=== PATIENT | female | born 1950 | race Caucasian/White ===

== ENCOUNTER → 2017-09-17 | Outpatient (CLI) | payer OTHER ==
[~2017-09-17] MED LIST: ESCITALOPRAM OXA5 MG PO; FISH OIL 1,0001 EA11 PO; FUROSEMIDE20 MG PO; MULTIVITAMIN1 EAC2 PO; OMEPRAZOLE40 M1 PO; POTASSIUM CHLO20 ME2 PO; SIMVASTATIN10 MG PO; TYLENOL EXTRA500 MG PO; VALSARTAN320 MG PO; VITAMIN C500 M1 PO
== END | disposition home or self-care (01) ==
DX: R26.2 Difficulty in walking, not elsewhere classified (principal); M25.562 Pain in left knee; M25.662 Stiffness of left knee, not elsewhere classified; M62.81 Muscle weakness (generalized); M17.12 Unilateral primary osteoarthritis, left knee
CPT/HCPCS: 97161 GP; 97165 GO; 97530 GP; 97537 GO; G8978 GP; G8979 GP; G8980 GP; G8987 GO; G8988 GO; G8989 GO

== ENCOUNTER 2017-10-20 22:08 | Inpatient (IN) | payer OTHER ==
[~2017-10-20] VITALS: Ht 177.8 cm; Wt 107.1 kg
[~2017-10-20 22:08] MED LIST changes: +24 HOUR ALLER15.8 ML BOTH NARES; +CHILD ASPIRIN81 M1 PO; +COZAAR100 MG PO; -ESCITALOPRAM OXA5 MG PO; +KLOR-CON M2020 MEQ PO; +LEXAPRO5 MG PO; +NORVASC5 MG PO; -POTASSIUM CHLO20 ME2 PO; -SIMVASTATIN10 MG PO; +TYLENOL ARTHRI650 MG PO; -TYLENOL EXTRA500 MG PO; +ZOCOR10 MG PO
[2017-10-21 09:27] VITALS: BP 167/84
[2017-10-21 14:01] LABS: HEMATOCRIT 37.4 % (36.0-46.0); HEMOGLOBIN 12.4 G/DL (11.9-15.5); MCHC 33.2 G/DL (30.0-36.0); MCV 93.5 FL (83-99); PLATELET COUNT 240 K/uL (156-360); RBC DIS.WIDTH-CV 12.3 % (11.8-14.6); RBC DIS.WIDTH-SD 42.5 % (39-53); WHITE BLOOD COUNT 5.8 K/uL (4.1-10.2)
[2017-10-21 16:33] VITALS: BP 163/86
[2017-10-21 20:03] VITALS: BP 161/85
[2017-10-22 00:09] VITALS: BP 160/84
[2017-10-22 03:57] VITALS: BP 176/83
[2017-10-22 06:26] LABS: HEMATOCRIT 34.2 % (36.0-46.0); HEMOGLOBIN 11.4 G/DL (11.9-15.5); MCV 92.7 FL (83-99)
[2017-10-22 06:33] LABS: CHLORIDE 100 MEQ/L (99-109); CREATININE 0.6 MG/DL (0.6-1.3); GFR ESTIMATE (CALCULATED) > 59 mL/min/; GLUCOSE 124 mg/dL (70-99); POTASSIUM 3.5 MEQ/L (3.7-5.4); SODIUM 133 MEQ/L (136-147); UREA NITROGEN (BUN) 15 mg/dL (9-23)
[2017-10-22 07:30] VITALS: BP 166/77
[2017-10-22 15:14] VITALS: BP 158/79
[2017-10-22 23:16] VITALS: BP 160/73
[2017-10-23 05:51] LABS: HEMATOCRIT 29.8 % (36.0-46.0); HEMOGLOBIN 10.1 G/DL (11.9-15.5); MCV 91.4 FL (83-99)
[2017-10-23 08:19] VITALS: BP 127/63
[2017-10-23] MEDS ORDERED: CELECOXIB200 MG PO (09:17)
[2017-10-23] MEDS ORDERED: LOVENOX40 MG/0.4 SC (09:17)
[2017-10-23] MEDS ORDERED: ENDOCET 5-3251 EACH PO (09:17)
[2017-10-23] MEDS ORDERED: DOCUSATE SODIU100 MG PO (09:17)
== END 2017-10-23 14:17 | disposition home or self-care (01) | DRG 470 ==
LOC: ENRESERV 22:08 → 2SOUTH 10-21 08:53 → ENRESERV 10-21 15:35 → 2SOUTH 10-21 15:49 → 3EAST 10-21 15:53
PROVIDERS: Orthopaedic Surgery
PROC: 0SRD0J9 Replacement of Left Knee Joint with Synthetic Substitute, Cemented, Open Approach (ICD-10-PCS; principal; 2017-10-21)
DX: M17.12 Unilateral primary osteoarthritis, left knee (principal); I10 Essential (primary) hypertension; G47.33 Obstructive sleep apnea (adult) (pediatric); E78.5 Hyperlipidemia, unspecified; K21.9 Gastro-esophageal reflux disease without esophagitis; J45.909 Unspecified asthma, uncomplicated; F32.9 Major depressive disorder, single episode, unspecified; E66.9 Obesity, unspecified; D11.9 Benign neoplasm of major salivary gland, unspecified; F41.9 Anxiety disorder, unspecified; Z68.33 Body mass index [BMI] 33.0-33.9, adult; Z80.0 Family history of malignant neoplasm of digestive organs; Z91.81 History of falling; Z82.49 Family history of ischemic heart disease and other diseases of the circulatory system
CPT/HCPCS: 73560; 80048; 85014; 85018; 85027; 94660; C1713; J0131; J0690; J1100; J1170; J1650; J2250; J2405; J2795; J3010; J7050